=== PATIENT | female | born 1960 ===

== ENCOUNTER 2020-09-27 06:27 | Day surgery (SDC) | payer OTHER ==
[~2020-09-27 06:27] MED LIST: COZAAR100 MG PO; GABAPENTIN600 MG PO; METFORMIN HCL500 M3 PO; TOPROL XL100 M1 PO
== END 2020-09-27 22:15 | disposition home or self-care (01) ==
LOC: EDSEX 06:27 → CIR.AMB 06:27
PROVIDERS: ATTEND Colon & Rectal Surgery
DX: K60.3 Anal fistula (principal); A63.0 Anogenital (venereal) warts; Z20.822 Contact with and (suspected) exposure to COVID-19

== ENCOUNTER 2020-10-27 11:06 | Emergency (ER) | payer OTHER ==
[~2020-10-27] VITALS: Ht 152.4 cm; Wt 88.9 kg
== END 2020-10-27 16:15 | disposition home or self-care (01) ==
LOC: ER 11:06
DX: T81.41XA Infection following a procedure, superficial incisional surgical site, initial encounter (principal); K61.0 Anal abscess; Z03.818 Encounter for observation for suspected exposure to other biological agents ruled out

== ENCOUNTER 2021-03-28 06:22 | Day surgery (SDC) | payer OTHER ==
[~2021-03-28 06:22] MED LIST changes: +AMBIE PO; +GLUMETZA500 MG; +LIPITOR40 M1 PO; +LIRICA PO; +PREGABALIN75 MG PO; +XANA PO; +[UNRECOGNIZED DRUG - OTHER] PO
== END 2021-03-28 18:10 | disposition home or self-care (01) ==
LOC: CIR.AMB 06:22 → AMB-ENDOS 10:45 → CIR.AMB 10:45 → ADM 04-23 10:00
PROVIDERS: ATTEND Colon & Rectal Surgery
DX: K60.3 Anal fistula (principal)

== ENCOUNTER 2021-05-17 14:54 | Emergency (ER) | payer OTHER ==
[~2021-05-17] VITALS: Ht 162.6 cm; Wt 88.9 kg
[2021-05-17] MEDS ORDERED: CIPRO500 MG PO (18:37)
[2021-05-17] MEDS ORDERED: METRONIDAZOLE500 MG PO (18:37)
== END 2021-05-17 19:05 | disposition home or self-care (01) ==
LOC: ER 14:54 → EMR PED 14:57 → ER 14:57
DX: K60.3 Anal fistula (principal)

== ENCOUNTER 2022-06-12 06:45 | Day surgery (SDC) | payer OTHER ==
[~2022-06-12] VITALS: Ht 167.6 cm; Wt 90.7 kg
[~2022-06-12 06:45] MED LIST changes: +CIPRO500 MG PO; +METRONIDAZOLE500 MG PO
== END 2022-06-12 12:35 | disposition home or self-care (01) ==
LOC: CIR.AMB 06:45
PROVIDERS: ATTEND Colon & Rectal Surgery
DX: K60.3 Anal fistula (principal); D12.9 Benign neoplasm of anus and anal canal; Z86.010 Personal history of colon polyps; I10 Essential (primary) hypertension; Z20.822 Contact with and (suspected) exposure to COVID-19; G62.9 Polyneuropathy, unspecified

== ENCOUNTER 2022-12-25 07:45 | Day surgery (SDC) | payer OTHER | END 2022-12-25 13:25 | disposition home or self-care (01) | LOC: CIR.AMB 07:45 | PROVIDERS: ATTEND Colon & Rectal Surgery | DX: K60.3 Anal fistula (principal); D12.9 Benign neoplasm of anus and anal canal; I10 Essential (primary) hypertension; Z20.822 Contact with and (suspected) exposure to COVID-19 ==